=== PATIENT | male | born 1940 | race Caucasian/White ===

== ENCOUNTER → 2017-03-30 | Outpatient (CLI) | payer OTHER ==
[2017-03-30 09:32] LABS: BLOOD UREA NITROGEN 17 mg/dl (7-18); BUN/CREATININE RATIO 14.1 (10-20); CALCIUM 9.6 mg/dl (8.5-10.1); CARBON DIOXIDE 30 mmol/L (21-32); CHLORIDE 97 mmol/L (98-107); GLUCOSE 157 mg/dl (70-99); POTASSIUM 4.5 mmol/L (3.5-5.1); SODIUM 131 mmol/L (136-145)
[2017-03-30 10:20] LABS: ESTIMATED AVERAGE GLUCOSE 169 mg/dl; HA1C FLAG Normal (Normal)
== END | disposition home or self-care (01) ==
LOC: C.LABFOXMH 08:51
PROVIDERS: ATTEND Internal Medicine
DX: E10.9 Type 1 diabetes mellitus without complications (principal)

== ENCOUNTER → 2017-06-01 | Outpatient (CLI) | payer OTHER ==
[2017-06-01 10:22] LABS: BLOOD UREA NITROGEN 19 mg/dl (7-18); CALCIUM 9.4 mg/dl (8.5-10.1); CARBON DIOXIDE 30 mmol/L (21-32); CHLORIDE 96 mmol/L (98-107); GLUCOSE 168 mg/dl (70-99); POTASSIUM 4.3 mmol/L (3.5-5.1); SODIUM 131 mmol/L (136-145)
== END | disposition home or self-care (01) ==
LOC: C.LABFOXMH 09:43
PROVIDERS: ATTEND Internal Medicine
DX: I10 Essential (primary) hypertension (principal)

== ENCOUNTER → 2017-06-09 | Outpatient (CLI) | payer OTHER, BC ==
--- NOTE | 2017-06-09 11:25 | DIAGNOSTIC IMAGING REPORT ---
CAROTID DOPPLER NECK ART HISTORY: Carotid bruit. Mental status change. BRUIT COMPARISON: None. TECHNIQUE: Real-time, grayscale, and color Doppler sonography of the carotid arteries was performed. Imaging reviewed in the transverse and longitudinal planes. All measurements were calculated based on NASCET criteria. FINDINGS: Antegrade flow is seen in the bilateral vertebral arteries. The brachial pressures are hemodynamically similar. Mild plaque formation bilaterally The peak systolic velocity within the right ICA is 74. The right systolic ratio is 1.0. The peak systolic velocity within the left ICA is 69. The left systolic ratio is 0.9. IMPRESSION: No hemodynamically significant stenosis seen within the carotid arteries. Mild plaque formation bilaterally The above report was generated using voice recognition software. It may contain grammatical, syntax or spelling errors. Electronically signed by: Greg Ramírez M.D. 06/09/2017 11:24 AM Dictated Date/Time: 06/09/2017 11:23 AM
== END | disposition home or self-care (01) ==
LOC: C.ULTR 10:27
PROVIDERS: ATTEND Internal Medicine
DX: R09.89 Other specified symptoms and signs involving the circulatory and respiratory systems (principal)

== ENCOUNTER → 2017-08-30 | Outpatient (CLI) | payer OTHER, BC ==
[2017-08-30 10:12] LABS: BLOOD UREA NITROGEN 13 mg/dl (7-18); BUN/CREATININE RATIO 11.9 (10-20); CALCIUM 9.5 mg/dl (8.5-10.1); CARBON DIOXIDE 30 mmol/L (21-32); CHLORIDE 99 mmol/L (98-107); CHOLESTEROL 119 mg/dl (0-200); CREATININE 1.05 mg/dl (0.60-1.40); GLUCOSE 140 mg/dl (70-99); POTASSIUM 4.1 mmol/L (3.5-5.1); SODIUM 134 mmol/L (136-145); TRIGLYCERIDES 73 mg/dl (0-150); VERY LOW DENSITY LIPOPROT CALC 15 mg/dl
[2017-08-30 10:16] LABS: CHOLESTEROL/HDL RATIO 2.5; HDL CHOLESTEROL 47 mg/dl; LDL CHOLESTEROL CALCULATED 57 mg/dl
== END ==
LOC: C.LAB 08:48
PROVIDERS: ATTEND Internal Medicine
DX: E78.00 Pure hypercholesterolemia, unspecified (principal)

== ENCOUNTER → 2017-09-29 | Outpatient (CLI) | payer OTHER, BC ==
[~2017-09-29] MED LIST: ASPI81TA28 PO; CALC-51 PO; COQ10 PO; CYCL0.052 OP; FELO10TA2 PO; FINA5TAB PO; GLUCTAB7 PO; INSPMPNVLG; LEVO75TA5 PO; LOSA1TAB38 PO; MISCCAP80 PO; MULT-506 PO; OMEG12006 PO; SIMV10TA2 PO; SUPER BEET PO; [UNRECOGNIZED DRUG - CODE] PO
[2017-09-29 08:55] LABS: HEMOGLOBIN A1C 7.8 % (4.5-5.6)
== END | disposition home or self-care (01) ==
LOC: C.LABFOXMH 07:57
PROVIDERS: ATTEND Internal Medicine Hospice and Palliative Medicine
DX: E10.9 Type 1 diabetes mellitus without complications (principal)

== ENCOUNTER → 2017-10-19 | Outpatient (CLI) | payer OTHER, BC ==
[2017-10-19 08:28] LABS: BLOOD UREA NITROGEN 20 mg/dl (7-18); CALCIUM 9.6 mg/dl (8.5-10.1); CARBON DIOXIDE 29 mmol/L (21-32); CREATININE 1.14 mg/dl (0.60-1.40); GLUCOSE 182 mg/dl (70-99); POTASSIUM 4.1 mmol/L (3.5-5.1); SODIUM 130 mmol/L (136-145)
== END ==
LOC: C.LABFOXMH 07:42
PROVIDERS: ATTEND Internal Medicine
DX: I10 Essential (primary) hypertension (principal)

== ENCOUNTER → 2017-11-09 | Outpatient (CLI) | payer OTHER, BC ==
[2017-11-09 09:38] LABS: BLOOD UREA NITROGEN 14 mg/dl (7-18); CALCIUM 9.8 mg/dl (8.5-10.1); CARBON DIOXIDE 28 mmol/L (21-32); CREATININE 1.12 mg/dl (0.60-1.40); GLUCOSE 145 mg/dl (70-99); POTASSIUM 4.1 mmol/L (3.5-5.1); SODIUM 132 mmol/L (136-145)
== END | disposition home or self-care (01) ==
LOC: C.LABFOXMH 08:55
PROVIDERS: ATTEND Internal Medicine
DX: I10 Essential (primary) hypertension (principal)

== ENCOUNTER → 2017-11-27 | Outpatient (CLI) | payer OTHER, BC | END | disposition home or self-care (01) | LOC: C.LABFOXMH 08:57 | PROVIDERS: ATTEND Nurse Practitioner Family | DX: E03.9 Hypothyroidism, unspecified (principal) ==

== ENCOUNTER → 2017-12-28 | Outpatient (CLI) | payer OTHER, BC | END | disposition home or self-care (01) | LOC: C.LABFOXMH 08:09 | PROVIDERS: ATTEND Internal Medicine | DX: E10.649 Type 1 diabetes mellitus with hypoglycemia without coma (principal) ==

== ENCOUNTER → 2018-01-23 | Outpatient (CLI) | payer OTHER, BC ==
[2018-01-23 09:33] LABS: BLOOD UREA NITROGEN 16 mg/dl (7-18); CALCIUM 9.1 mg/dl (8.5-10.1); CARBON DIOXIDE 29 mmol/L (21-32); CREATININE 1.09 mg/dl (0.60-1.40); GLUCOSE 80 mg/dl (70-99); POTASSIUM 3.7 mmol/L (3.5-5.1); SODIUM 134 mmol/L (136-145)
== END | disposition home or self-care (01) ==
LOC: C.LABFOXMH 09:05
PROVIDERS: ATTEND Internal Medicine
DX: I10 Essential (primary) hypertension (principal)

== ENCOUNTER → 2018-05-09 | Day surgery (SDC) | payer OTHER, BC ==
[2018-04-30 13:25] VITALS: Ht 166.4 cm; Wt 69.5 kg
[~2018-05-09] VITALS: Ht 166.4 cm; Wt 69.5 kg
[~2018-05-09] MED LIST changes: +LIDOCAINE HCL 2% 2 ML VIAL (20MG/ML) ONE; +MIDAZOLAM HCL 1 MG/ML 2ML VIAL ONE; +ONDANSETRON INJ 2 MG/ML 2 ML VIAL ONE; +PROPOFOL IV EMULSION 10 MG/ML 20 ML VIAL ONE
--- NOTE | 2018-05-09 08:51 | Endo History and Physical ---
History & Physical Date of Service: May 09, 2018. Chief Complaint: Family history of colon cancer (mother and father) Referring Physician: Dr. Babin History of Present Illness 78 yo CM who presents for colonoscopy secondary to family history of colon cancer (mother and father). 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) Allergies Coded Allergies: No Known Allergies (Verified , 05/09/18) Current Medications Reported Home Medications Medications Dose Route/Sig Max Daily Dose Days Date Category Dose Instructions [Super Beet] 1 Dose PO 3XWEEK 04/30/18 Reported Zocor (Simvastatin) 10 Mg Tab 10 Mg PO QPM 04/30/18 Reported Restasis (Cyclosporine (Ophth)) 0.05 % Emu 1 Drop OP BID 04/30/18 Reported Probiotic (Probiotic Product) 1 Cap Cap 1 Tab PO NOON 04/30/18 Reported novoLOG INSULIN PUMP (Insulin Aspart) 1 Ea Inj 1 Ea N/A UD 04/30/18 Reported Multivitamin (Multivitamins) Tab 1 Tab PO NOON 04/30/18 Reported Cozaar (Losartan Potassium) 100 Mg Tab 100 Mg PO QAM 04/30/18 Reported Levothyroxine Sodium 75 Mcg Tab 1 Tab PO QAM 90 04/30/18 Reported [Spironlactone/Hctz] 0.5 Tab PO QAM 04/30/18 Reported 25/25/MG Glucosamine Chondroitin (Ubhmvepzrgo-Peodrhsqwvg-Yom C-) 1 Tab Tab 2 Tab PO NOON 04/30/18 Reported [place] 3 ([place]fe-3 Fatty Acids) 1 Cap Cap 2 Tab PO NOON 04/30/18 Reported Proscar (Finasteride) 5 Mg Tab 5 Mg PO NOON 04/30/18 Reported Plendil (Felodipine) 10 Mg Tabcr 10 Mg PO QAM 04/30/18 Reported [Calcium] 1 Tab PO NOON 04/30/18 Reported [Coq10] 1 Tab PO NOON 04/30/18 Reported Aspirin Ec (Aspirin) 81 Mg Tab 81 Mg PO HS 04/30/18 Reported Vital Signs Weight (Kilograms): 69.55 Height (Feet): 5 Height (Inches): 5.5 Physical Exam General Appearance: WD/WN, no apparent distress Respiratory/Chest: Auscultation: breath sounds normal Cardiovascular: Heart Auscultation: RRR Abdomen: Bowel Sounds: normal Inspection & Palpation: soft, non-distended, no tenderness, guarding & rebound Assessment and Plan Assessment: 78 yo CM who presents for colonoscopy secondary to family history of colon cancer (mother and father). Plan: Proceed with colonoscopy.
--- NOTE | 2018-05-09 10:12 | GI REPORT ---
Patient Name: Calin Agarwal Procedure Date: 05/09/2018 9:25 AM Date of : 1940 Admit Type: Outpatient Age: 78 Gender: Male Attending MD: Ryder Joshi DO Procedure: Colonoscopy Providers: Ryder Joshi DO Referring MD: Rigoberto Babin Indications: Family history of colon cancer in multiple first-degree relatives Medicines: Monitored Anesthesia Care Complications: No immediate complications. Estimated Blood Loss: Estimated blood loss: none. Procedure: Pre-Anesthesia Assessment: - Prior to the procedure, a History and Physical was performed, and patient medications and allergies were reviewed. The patient's tolerance of previous anesthesia was also reviewed. The risks and benefits of the procedure and the sedation options and risks were discussed with the patient. All questions were answered, and informed consent was obtained. Prior Anticoagulants: The patient has taken aspirin, last dose was 2 days prior to procedure. ASA Grade Assessment: III - A patient with severe systemic disease. After reviewing the risks and benefits, the patient was deemed in satisfactory condition to undergo the procedure. After I obtained informed consent, the scope was passed under direct vision. Throughout the procedure, the patient's blood pressure, pulse, and oxygen saturations were monitored continuously. The scope was introduced through the anus and advanced to the terminal ileum. The colonoscopy was performed without difficulty. The patient tolerated the procedure well. The quality of the bowel preparation was good. The terminal ileum, ileocecal valve, appendiceal orifice, and rectum were photographed. Findings: The perianal and digital rectal examinations were normal. Non-bleeding internal hemorrhoids were found during retroflexion. The hemorrhoids were small. Impression: - Non-bleeding internal hemorrhoids. - No specimens collected. Recommendation: - Resume previous diet. - Continue present medications. - Repeat colonoscopy in 5 years for surveillance. - Return to primary care physician as previously scheduled. Ryder Joshi DO 05/09/2018 10:11:59 AM This report has been signed electronically. Note Initiated On: 05/09/2018 9:25 AM Number of Addenda: 0 I attest to the content of the Intraoperative Record and orders documented therein, exceptions below {[id number]}
--- NOTE | 2018-05-09 10:13 | Discharge Instructions ---
Endoscopy Patient Instructions Date / Procedure(s) Performed May 09, 2018. Colonoscopy Allergy Information Coded Allergies: No Known Allergies (Verified , 05/09/18) Discharge Date / Findings May 09, 2018. Internal hemorrhoids Medication Instructions Stopped Medication(s): Patient held all supplements and only took his restasis and bp pills this am. OK to resume all medications today as prescribed Reported Home Medications Medications Dose Route/Sig Max Daily Dose Days Date Category Dose Instructions [Super Beet] 1 Dose PO 3XWEEK 04/30/18 Reported Zocor (Simvastatin) 10 Mg Tab 10 Mg PO QPM 04/30/18 Reported Restasis (Cyclosporine (Ophth)) 0.05 % Emu 1 Drop OP BID 04/30/18 Reported Probiotic (Probiotic Product) 1 Cap Cap 1 Tab PO NOON 04/30/18 Reported novoLOG INSULIN PUMP (Insulin Aspart) 1 Ea Inj 1 Ea N/A UD 04/30/18 Reported Multivitamin (Multivitamins) Tab 1 Tab PO NOON 04/30/18 Reported Cozaar (Losartan Potassium) 100 Mg Tab 100 Mg PO QAM 04/30/18 Reported Levothyroxine Sodium 75 Mcg Tab 1 Tab PO QAM 90 04/30/18 Reported [Spironlactone/Hctz] 0.5 Tab PO QAM 04/30/18 Reported 25/25/MG Glucosamine Chondroitin (Jgugasceubt-Ovmdmnxiung-Sdn C-) 1 Tab Tab 2 Tab PO NOON 04/30/18 Reported Knott 3 (Knott-3 Fatty Acids) 1 Cap Cap 2 Tab PO NOON 04/30/18 Reported Proscar (Finasteride) 5 Mg Tab 5 Mg PO NOON 04/30/18 Reported Plendil (Felodipine) 10 Mg Tabcr 10 Mg PO QAM 04/30/18 Reported [Calcium] 1 Tab PO NOON 04/30/18 Reported [Coq10] 1 Tab PO NOON 04/30/18 Reported Aspirin Ec (Aspirin) 81 Mg Tab 81 Mg PO HS 04/30/18 Reported Provider Instructions Activity Restrictions - No exercising or heavy lifting for 24 hours. - Do not drink alcohol the day of the procedure. - Do not drive a car or operate machinery until the day after the procedure. - Do not make any important decisions or sign important papers in 24 hours after the procedure. Following Day: - Return to full activity which may include returning to work/school. Diet Start your diet with liquids and light foods (jello, soup, juice, toast). Then eat your usual diet if not nauseated. Treatment For Common After Affects For mild abdominal pain, bloating, or excessive gas: - Rest - Eat lightly - Lie on right side Follow-Up Information Follow-up with Dr. Rigoberto Babin as scheduled Anesthesia Information What You Should Know You have had a procedure that required some medicine to reduce anxiety and discomfort. This treatment is called moderate sedation. After receiving the treatment, you may be sleepy, but you will be able to breathe on your own. The effects of the treatment may last for several hours. Follow these instructions along with Activity/Diet recommendations noted above: * Do NOT do anything where dizziness or clumsiness would be dangerous. * Rest quietly at home today, then you can be up and about tomorrow. * Have a responsible person stay with you the rest of today. * You may have had an I.V. today. If so, you may take the dressing off later today. Recommendations Call your doctor if: * Trouble breathing * Continuous vomiting for more than 24 hours * Temperature above 101 degrees * Severe abdominal pain or bloating * Pain not relieved by pain medicine ordered * There is increased drainage or redness from any incision * A large amount of rectal bleeding greater than 2-3 tablespoons. (If you had a polyp/s removed or have hemorrhoids, a small amount of blood - from the rectum is to be expected.) * You have any unanswered questions or concerns. IN THE EVENT OF A SERIOUS EMERGENCY, GO TO THE NEAREST EMERGENCY ROOM Your discharge instructions were prepared by provider Ryder Joshi. Patient Instructions Signature Page Calin Agarwal Patient (or Guardian) Signature/Date: I have read and understand the instructions given to me by my caregivers. Caregiver/RN/Doctor Signature/Date: The above-named patient and/or guardian has received patient instructions on this date. + Original Patient Signature Page (only) stays with chart. Please make copy for patient.
--- NOTE | 2018-05-09 10:18 | Anesthesiology Progress Note ---
Anesthesia Post Op Note Date & Time May 09, 2018 at 10:17 Vital Signs Pain Intensity: 0 Vital Signs Past 12 Hours Date Time Temp Pulse Resp B/P (MAP) Pulse Ox O2 Delivery O2 Flow Rate FiO2 05/09/18 08:56 36.1 87 20 137/63 (87) 100 Room Air Notes Mental Status: alert / awake / arousable, participated in evaluation Pt Amnestic to Procedure: Yes Nausea / Vomiting: adequately controlled Pain: adequately controlled Airway Patency, RR, SpO2: stable & adequate BP & HR: stable & adequate Hydration State: stable & adequate Anesthetic Complications: no major complications apparent
[2018-05-09 10:42] VITALS: BP 125/62; PULSE 56; O2SAT 97
== END | disposition home or self-care (01) ==
LOC: C.GI 08:24
PROVIDERS: ATTEND Internal Medicine
DX: Z12.11 Encounter for screening for malignant neoplasm of colon (principal); I10 Essential (primary) hypertension; K64.8 Other hemorrhoids; Z79.82 Long term (current) use of aspirin; Z80.0 Family history of malignant neoplasm of digestive organs

== ENCOUNTER 2020-10-26 12:11 | Observation (INO) ==
--- NOTE | 2020-10-26 12:56 | Emergency Department Note ---
History of Present Illness General Chief complaint: Shortness of Breath/Dyspnea Stated complaint: shortness of breath Time Seen by Provider: 10/26/20 12:25 Source: patient Mode of arrival: EMS Limitations: no limitations History of Present Illness Provider complaint: Shortness of breath, weakness Onset (ago): day(s) 3 Associated symptoms: + cough, + loss of appetite, + malaise, + shortness of breath and + weakness; no chest pain, no fever/chills and no nausea/vomiting Treatments prior to arrival: none This is an 80-year-old male who presents due to concern for increased shortness of breath and increasing weakness. Patient states symptoms began over the weekend. Patient does have a complicated past medical history. Patient states he has gotten the first of his 2 coronavirus vaccinations, but felt well after those. Patient has a history of recent aortic valve replacement in August as well as a history of hemolytic anemia. Patient states he take a baby aspirin daily however no other anticoagulation. Patient states he has been having nosebleeds recently which caused him to cough when he first wakes up however his cough does not persist throughout the day. Patient denies any other bruising or bleeding from any other source. Patient denies any history of asthma or COPD. Patient states he did smoke in his youth however quit in 1966. Patient does not typically wear home oxygen. On arrival nursing staff noted that he was markedly tachypneic despite still having room air saturations in the low 90s, patient reports now feeling improved with 2 L per nasal cannula. Patient denies any accompanying chest pain. Patient states he was found to have lymphadenopathy recently in his chest and is scheduled to have a biopsy in 2 days. Patient states he has had a poor appetite recently and is also noticed low blood sugar readings. Patient states he has been turning down his basal rate to try to manage this himself. Patient denies any recent change in bowel or bladder function, no lower extremity edema, no new rash or sores. Pt seen during a time of high acuity and national emergency pandemic while wearing PPE. Home Medications Medication Instructions Recorded Confirmed Type losartan 100 mg tablet 100 mg PO DAILY #90 tab 07/10/19 10/26/20 History aspirin 81 mg tablet,delayed 81 mg PO DAILY 08/13/19 10/26/20 History release levothyroxine 50 mcg capsule 50 mcg PO .COMPLEX 90 Days #45 cap 10/24/19 10/26/20 Rx levothyroxine 75 mcg tablet 75 mcg PO .COMPLEX 90 Days #45 tab 10/24/19 10/26/20 Rx Glucagon Emergency Kit (human) 1 1 mg IM .COMPLEX PRN #1 ea NS 02/27/20 10/26/20 Rx mg solution for injection rosuvastatin 10 mg tablet 10 mg PO .COMPLEX tab 02/27/20 10/26/20 History spironolactone 25 1 tab PO DAILY #90 tab 04/10/20 10/26/20 Rx mg-hydrochlorothiazide 25 mg tablet Novolog U-100 Insulin aspart 100 See Rx Instructions SQ DAILY #6 06/12/20 10/26/20 Rx unit/mL subcutaneous solution vial NS famotidine 20 mg tablet 20 mg PO BID 08/13/20 10/26/20 History tamsulosin 0.4 mg capsule 0.4 mg PO HS #90 cap 09/30/20 10/26/20 Rx cyclosporine 0.05 % eye drops 1 drp OPHTHALMIC (EYE) Q12H 10/21/20 10/26/20 History folic acid 1 mg tablet 1 mg PO DAILY 10/21/20 10/26/20 History prednisone 10 mg tablet 10 mg PO DAILY 10/21/20 10/26/20 History felodipine 10 mg tablet,extended 10 mg PO DAILY tab 10/23/20 10/26/20 History release 24 hr Allergies Allergy/AdvReac Type Severity Reaction Status Date / Time lisinopril [From Prinivil] Allergy Angioedema Verified 10/26/20 14:40 caffeine AdvReac Mild jitters Verified 10/26/20 14:40 Past Med/Surg History Medical History Cataract Diabetes type 1, controlled Hypoglycemia Malignant neoplasm Skin cancer, basal cell Surgical History History of eye surgery 1994 Excision growth on eye History of surgery Valve replaced 12-3-20 Hx of cataract surgery Family History Father Colorectal cancer Hypertension Mother Colorectal cancer Uncle Cardiac disorder Diabetes Sister Diabetes Social History Second Hand Exposure: No; Do You Dip or Chew Tobacco: No; Tobacco Cessation Education Requested by Patient: No Hx Alcohol Use: Yes (occasional use) Hx Substance Use: No Preferred Language: Panamanian Communication Ability: Effective 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 and A total of 10 systems reviewed and were otherwise negative Physical Exam Vital Signs Vital Signs - 24 hr 10/26/20 12:20 10/26/20 12:27 10/26/20 12:30 Temperature Temperature Source Pulse Rate 86 88 88 Pulse Rate from SpO2 Sensor 85 88 88 Respiratory Rate 29 H 27 H 29 H Respiratory Effort / Characteristics Respiratory Depth Respiratory Pattern Blood Pressure 116/60 114/64 Blood Pressure Mean 78 80 Pulse Oximetry 99 98 99 Oxygen Delivery Method Oxygen Flow Rate Sepsis Recent Fever Within 48 Hours Sepsis New/Unexplained Change in Mental Status Sepsis Action Taken by Nursing 10/26/20 12:32 10/26/20 12:40 10/26/20 12:50 Temperature 36.5 C Temperature Source Oral Pulse Rate 89 88 90 Pulse Rate from SpO2 Sensor 89 90 Respiratory Rate 34 H 30 H 24 Respiratory Effort / Characteristics Short of Breath Respiratory Depth Shallow Respiratory Pattern Tachypnea Blood Pressure 114/64 Blood Pressure Mean 80 Pulse Oximetry 92 98 98 Oxygen Delivery Method Room Air Oxygen Flow Rate Sepsis Recent Fever Within 48 Hours No Sepsis New/Unexplained Change in Mental Status No Sepsis Action Taken by Nursing No Action Required 10/26/20 13:00 10/26/20 13:10 10/26/20 13:20 Temperature Temperature Source Pulse Rate 89 90 91 H Pulse Rate from SpO2 Sensor 90 91 H Respiratory Rate 28 H 28 H 27 H Respiratory Effort / Characteristics Respiratory Depth Respiratory Pattern Blood Pressure 125/64 Blood Pressure Mean 84 Pulse Oximetry 97 97 Oxygen Delivery Method Oxygen Flow Rate Sepsis Recent Fever Within 48 Hours Sepsis New/Unexplained Change in Mental Status Sepsis Action Taken by Nursing 10/26/20 13:30 10/26/20 13:40 10/26/20 13:50 Temperature Temperature Source Pulse Rate 91 H 91 H 89 Pulse Rate from SpO2 Sensor Respiratory Rate 26 H 28 H 33 H Respiratory Effort / Characteristics Respiratory Depth Respiratory Pattern Blood Pressure Blood Pressure Mean Pulse Oximetry Oxygen Delivery Method Oxygen Flow Rate Sepsis Recent Fever Within 48 Hours Sepsis New/Unexplained Change in Mental Status Sepsis Action Taken by Nursing 10/26/20 14:00 10/26/20 14:01 10/26/20 14:59 Temperature Temperature Source Pulse Rate 87 92 H 90 Pulse Rate from SpO2 Sensor 90 Respiratory Rate 36 H 22 28 H Respiratory Effort / Characteristics Respiratory Depth Respiratory Pattern Blood Pressure 114/58 L Blood Pressure Mean 76 Pulse Oximetry 95 Oxygen Delivery Method Oxygen Flow Rate Sepsis Recent Fever Within 48 Hours Sepsis New/Unexplained Change in Mental Status Sepsis Action Taken by Nursing 10/26/20 15:00 10/26/20 15:10 10/26/20 15:20 Temperature Temperature Source Pulse Rate 90 91 H 92 H Pulse Rate from SpO2 Sensor 90 Respiratory Rate 34 H 35 H 36 H Respiratory Effort / Characteristics Respiratory Depth Respiratory Pattern Blood Pressure 117/60 Blood Pressure Mean 79 Pulse Oximetry 96 Oxygen Delivery Method Nasal Cannula Oxygen Flow Rate 2 Sepsis Recent Fever Within 48 Hours Sepsis New/Unexplained Change in Mental Status Sepsis Action Taken by Nursing 10/26/20 15:30 10/26/20 15:40 10/26/20 15:50 Temperature Temperature Source Pulse Rate 90 90 90 Pulse Rate from SpO2 Sensor 91 H 90 91 H Respiratory Rate 29 H 30 H 29 H Respiratory Effort / Characteristics Respiratory Depth Respiratory Pattern Blood Pressure Blood Pressure Mean Pulse Oximetry 96 96 97 Oxygen Delivery Method Oxygen Flow Rate Sepsis Recent Fever Within 48 Hours Sepsis New/Unexplained Change in Mental Status Sepsis Action Taken by Nursing 10/26/20 16:02 10/26/20 16:10 10/26/20 16:20 Temperature Temperature Source Pulse Rate 94 H 90 91 H Pulse Rate from SpO2 Sensor 91 H 91 H Respiratory Rate 28 H 34 H 29 H Respiratory Effort / Characteristics Respiratory Depth Respiratory Pattern Blood Pressure Blood Pressure Mean Pulse Oximetry 96 96 Oxygen Delivery Method Oxygen Flow Rate Sepsis Recent Fever Within 48 Hours Sepsis New/Unexplained Change in Mental Status Sepsis Action Taken by Nursing 10/26/20 16:30 10/26/20 16:40 10/26/20 16:50 Temperature Temperature Source Pulse Rate 89 90 89 Pulse Rate from SpO2 Sensor 90 91 H 89 Respiratory Rate 31 H 29 H 29 H Respiratory Effort / Characteristics Respiratory Depth Respiratory Pattern Blood Pressure Blood Pressure Mean Pulse Oximetry 96 96 95 Oxygen Delivery Method Oxygen Flow Rate Sepsis Recent Fever Within 48 Hours Sepsis New/Unexplained Change in Mental Status Sepsis Action Taken by Nursing GENERAL: alert, well appearing, well nourished, no distress, non-toxic, nasal cannula in place EYE EXAM: normal conjunctiva, PERRL and EOM's grossly intact OROPHARYNX: no exudate, no erythema, lips, buccal mucosa, and tongue normal and mucous membranes are moist NECK: supple, no nuchal rigidity, no adenopathy, non-tender LUNGS: Clear to auscultation. Normal chest wall mechanics, no w/r/r HEART: no murmurs, S1 normal and S2 normal ABDOMEN: abdomen soft, non-tender, normo-active bowel sounds, no masses, no rebound or guarding. BACK: Back is symmetrical on inspection and there is no deformity, no midline tenderness, no CVA tenderness. SKIN: no rashes and no bruising UPPER EXTREMITIES: upper extremities are grossly normal. FROM, nml pulses b/l. LOWER EXTREMITIES: No pitting edema. FROM, nml pulses b/l. NEURO EXAM: Normal sensorium, cranial nerves II-XII grossly intact, normal speech, no gross weakness of arms, no gross weakness of legs. Gross sensation intact. Course Course 1432: Updated patient and at bedside. 1440: Discussed with Dr. Strange, he would like the case discussed with Dr. Smith prior to admitting him. 1447: Dr. Smith suggests pt should be transferred. 1450: Pt updated on discussions. Would prefer transfer back to [facility]. 1615: Discussed with [facility] Dr. Arias hospitalist and Dr. Whitaker, heme/onc. 1640: DIscussed again with Dr. Strange. Administered Medications Dextrose (Dextrose 50% 50 Ml Syringe) 25 - 50 ml IV UD PRN; Protocol PRN Reason: Hypoglycemia Protocol Stop: 11/25/20 18:18 Last Admin: 10/26/20 19:37 Dose: 50 ml Documented by: [id number] Sodium Chloride (Nss 1000ml) 1,000 mls @ 125 mls/hr IV .Q8H [facility] Stop: 11/25/20 18:59 Last Admin: 10/26/20 19:13 Dose: 125 mls/hr Documented by: [id number] Discontinued Medications Sodium Chloride (Nss 1000ml) 1,000 mls @ 125 mls/hr IV .Q8H [facility] Stop: 11/25/20 12:59 Last Infusion: 10/26/20 19:13 Dose: 0 mls/hr Documented by: [id number] Admin: 10/26/20 13:44 Dose: 125 mls/hr Documented by: [id number] Cefepime HCl (Maxipime) 2,000 mg in 20 mls @ 5 mls/min IV NOW STA; Protocol Stop: 10/26/20 16:42 Last Admin: 10/26/20 16:52 Dose: 5 mls/min Documented by: [id number] Critical Care Time Critical Care Time: Yes Total Critical Care Time: 52 Critical care of 52 min performed to assess and manage high likelihood of life- threatening arf and possible new leukemia, involving labs and imaging performed with assessment to evaluate arf and possible new leukemia diagnosis with freq uent reassessment. This time includes bedside time, treatment discussions with patient/family/consultants, documentation time and excludes procedure time. Medical Decision Making Differential Diagnosis Differential diagnoses includes but is not limited to pneumonia, bronchitis, COPD/Asthma exacerbation, pneumothorax, pulmonary embolism, congestive heart failure, acute coronary syndrome Medical Records Attestation: I reviewed the patient's medical records. Home Medications Current Medication List: was personally reviewed by me Laboratory Data Attestation: I reviewed the patient's lab results. Result diagrams: 10/26/20 12:30 10/26/20 12:30 Lab Results 10/26/20 10/26/20 10/26/20 Range/Units 12:30 12:30 12:30 WBC 41.85 H* (4.8-10.8) K/uL RBC 3.40 L (4.7-6.1) M/uL Hgb 10.7 L (14.0-18.0) g/dL Hct 30.9 L (42-52) % MCV 90.9 (80-100) fL MCH 31.5 (25-34) pg MCHC 34.6 (32-36) g/dL RDW Std Deviation 49.0 H (36.4-46.3) fL RDW Coeff of Elvia 14.9 H (11.5-14.5) % Plt Count 89 L (130-400) K/uL MPV 10.8 H (7.4-10.4) fL Absolute Nucleated RBC 0.35 H (0-0) K/uL Nucleated RBC % (auto) 0.8 % Neutrophils % (Manual) 51.0 % Lymphocytes % (Manual) 18.0 % Monocytes % (Manual) 10.0 % Metamyelocytes % (Man) 10.0 % Myelocytes % (Man) 11.0 % Neutrophils # (Manual) 21.34 H (1.4-6.5) K/uL Total Absolute Neuts 21.34 H (1.4-6.5) K/uL Lymphocytes # (Manual) 7.53 H (1.2-3.4) K/uL Total Abs Lymphocytes 7.53 H (1.2-3.4) K/uL Monocytes # (Manual) 4.19 H (0.11-0.59) K/uL Metamyelocytes # (Man) 4.19 H (0-0) K/uL Myelocytes # (Manual) 4.60 H (0-0) K/uL Blood Smear Review PT 12.2 H (9.0-12.0) Seconds INR 1.2 H (0.9-1.1) ABG pH (7.35-7.45) ABG pCO2 (35-46) mmHg ABG pO2 (80-95) mmHg ABG HCO3 (19-24) mmol/L ABG O2 Saturation (90-95) % ABG Base Excess (-9-1.8) mEq/L Leonid Test (Pos) Barometric Pressure mm/Hg Oxygen Given Sodium 136 (136-145) mmol/L Potassium 5.1 (3.5-5.1) mmol/L Chloride 101 (98-107) mmol/L Carbon Dioxide 18 L (21-32) mmol/L Anion Gap 17.0 H (3-11) BUN 57 H (7-18) mg/dl Creatinine 2.70 H (0.6-1.4) mg/dl Est Cr Clr Drug Dosing 18.3 ml/min Est GFR ( Amer) 24.3 Est GFR (Non-Af Amer) 21.0 BUN/Creatinine Ratio 21.0 H (10-20) Glucose 64 L (70-99) mg/dl Lactate (0.4-2.0) mmol/L Uric Acid (2.6-7.2) mg/dl Calcium 10.1 (8.5-10.1) mg/dl Phosphorus (2.5-4.9) mg/dl Magnesium 2.1 (1.8-2.4) mg/dl Total Bilirubin 0.6 (0.2-1) mg/dl AST 228 H (15-37) U/L ALT 24 (12-78) U/L Alkaline Phosphatase 181 H (45-117) U/L Troponin I 0.138 H* (0-0.045) ng/ml NT-Pro-B Natriuret Pep 2515 H (0-1800) pg/ml Total Protein 6.8 (6.4-8.2) gm/dl Albumin 2.9 L (3.4-5.0) gm/dl Globulin 3.9 (2.5-4.0) gm/dl Albumin/Globulin Ratio 0.7 L (0.9-2) Lipase (73-393) U/L Procalcitonin (0-0.5) ng/ml TSH 2.450 (0.300-4.500) uIu/ml COVID-19 Eval Order SARS-CoV-2 (PCR) (Negative) Influenza Type A (PCR) (Neg) Influenza Type B (PCR) (Neg) RSV (RT-PCR) (Neg) 10/26/20 10/26/20 10/26/20 Range/Units 12:30 13:00 13:00 WBC (4.8-10.8) K/uL RBC (4.7-6.1) M/uL Hgb (14.0-18.0) g/dL Hct (42-52) % MCV (80-100) fL MCH (25-34) pg MCHC (32-36) g/dL RDW Std Deviation (36.4-46.3) fL RDW Coeff of Elvia (11.5-14.5) % Plt Count (130-400) K/uL MPV (7.4-10.4) fL Absolute Nucleated RBC (0-0) K/uL Nucleated RBC % (auto) % Neutrophils % (Manual) % Lymphocytes % (Manual) % Monocytes % (Manual) % Metamyelocytes % (Man) % Myelocytes % (Man) % Neutrophils # (Manual) (1.4-6.5) K/uL Total Absolute Neuts (1.4-6.5) K/uL Lymphocytes # (Manual) (1.2-3.4) K/uL Total Abs Lymphocytes (1.2-3.4) K/uL Monocytes # (Manual) (0.11-0.59) K/uL Metamyelocytes # (Man) (0-0) K/uL Myelocytes # (Manual) (0-0) K/uL Blood Smear Review PT (9.0-12.0) Seconds INR (0.9-1.1) ABG pH (7.35-7.45) ABG pCO2 (35-46) mmHg ABG pO2 (80-95) mmHg ABG HCO3 (19-24) mmol/L ABG O2 Saturation (90-95) % ABG Base Excess (-9-1.8) mEq/L Leonid Test (Pos) Barometric Pressure mm/Hg Oxygen Given Sodium (136-145) mmol/L Potassium (3.5-5.1) mmol/L Chloride (98-107) mmol/L Carbon Dioxide (21-32) mmol/L Anion Gap (3-11) BUN (7-18) mg/dl Creatinine (0.6-1.4) mg/dl Est Cr Clr Drug Dosing ml/min Est GFR ( Amer) Est GFR (Non-Af Amer) BUN/Creatinine Ratio (10-20) Glucose (70-99) mg/dl Lactate (0.4-2.0) mmol/L Uric Acid 18.2 H (2.6-7.2) mg/dl Calcium (8.5-10.1) mg/dl Phosphorus 3.5 (2.5-4.9) mg/dl Magnesium (1.8-2.4) mg/dl Total Bilirubin (0.2-1) mg/dl AST (15-37) U/L ALT (12-78) U/L Alkaline Phosphatase (45-117) U/L Troponin I (0-0.045) ng/ml NT-Pro-B Natriuret Pep (0-1800) pg/ml Total Protein (6.4-8.2) gm/dl Albumin (3.4-5.0) gm/dl Globulin (2.5-4.0) gm/dl Albumin/Globulin Ratio (0.9-2) Lipase 133 (73-393) U/L Procalcitonin (0-0.5) ng/ml TSH (0.300-4.500) uIu/ml COVID-19 Eval Order [facility]Rsv at [facility] SARS-CoV-2 (PCR) NEGATIVE (Negative) Influenza Type A (PCR) Negative (Neg) Influenza Type B (PCR) Negative (Neg) RSV (RT-PCR) Negative (Neg) 10/26/20 10/26/20 10/26/20 Range/Units 15:12 15:12 15:26 WBC (4.8-10.8) K/uL RBC (4.7-6.1) M/uL Hgb (14.0-18.0) g/dL Hct (42-52) % MCV (80-100) fL MCH (25-34) pg MCHC (32-36) g/dL RDW Std Deviation (36.4-46.3) fL RDW Coeff of Elvia (11.5-14.5) % Plt Count (130-400) K/uL MPV (7.4-10.4) fL Absolute Nucleated RBC (0-0) K/uL Nucleated RBC % (auto) % Neutrophils % (Manual) % Lymphocytes % (Manual) % Monocytes % (Manual) % Metamyelocytes % (Man) % Myelocytes % (Man) % Neutrophils # (Manual) (1.4-6.5) K/uL Total Absolute Neuts (1.4-6.5) K/uL Lymphocytes # (Manual) (1.2-3.4) K/uL Total Abs Lymphocytes (1.2-3.4) K/uL Monocytes # (Manual) (0.11-0.59) K/uL Metamyelocytes # (Man) (0-0) K/uL Myelocytes # (Manual) (0-0) K/uL Blood Smear Review PT (9.0-12.0) Seconds INR (0.9-1.1) ABG pH 7.44 (7.35-7.45) ABG pCO2 30 L (35-46) mmHg ABG pO2 102 H (80-95) mmHg ABG HCO3 20 (19-24) mmol/L ABG O2 Saturation 98.0 H (90-95) % ABG Base Excess -3.5 (-9-1.8) mEq/L Leonid Test Pos (Pos) Barometric Pressure 727.4 mm/Hg Oxygen Given O2 RATE 3 Sodium (136-145) mmol/L Potassium (3.5-5.1) mmol/L Chloride (98-107) mmol/L Carbon Dioxide (21-32) mmol/L Anion Gap (3-11) BUN (7-18) mg/dl Creatinine (0.6-1.4) mg/dl Est Cr Clr Drug Dosing ml/min Est GFR ( Amer) Est GFR (Non-Af Amer) BUN/Creatinine Ratio (10-20) Glucose (70-99) mg/dl Lactate 8.2 H* (0.4-2.0) mmol/L Uric Acid (2.6-7.2) mg/dl Calcium (8.5-10.1) mg/dl Phosphorus (2.5-4.9) mg/dl Magnesium (1.8-2.4) mg/dl Total Bilirubin (0.2-1) mg/dl AST (15-37) U/L ALT (12-78) U/L Alkaline Phosphatase (45-117) U/L Troponin I (0-0.045) ng/ml NT-Pro-B Natriuret Pep (0-1800) pg/ml Total Protein (6.4-8.2) gm/dl Albumin (3.4-5.0) gm/dl Globulin (2.5-4.0) gm/dl Albumin/Globulin Ratio (0.9-2) Lipase (73-393) U/L Procalcitonin 1.51 H (0-0.5) ng/ml TSH (0.300-4.500) uIu/ml COVID-19 Eval Order SARS-CoV-2 (PCR) (Negative) Influenza Type A (PCR) (Neg) Influenza Type B (PCR) (Neg) RSV (RT-PCR) (Neg) Imaging Data Radiologist's Impression: XR chest 1V portable HISTORY: 80 years-old Male sob, weak acute shortness of breath with weakness COMPARISON: Chest radiographs 04/30/2020 TECHNIQUE: Portable AP view of the chest FINDINGS: Cardiomediastinal and hilar silhouettes are unchanged. Aortic endograft. There is calcified plaque of the thoracic aorta. Linear subsegmental bibasilar densities are new from comparison. Bones appear grossly intact. IMPRESSION: Linear bibasilar opacities suggest atelectasis. Pneumonitis co nsidered less likely. ACT 112: Negative or not required by law. The above report was generated using voice recognition software. It may contain grammatical, syntax or spelling errors. Electronically signed by: Ed Kenney M.D. 10/26/2020 1:25 PM ECG Data Attestation: I personally reviewed and interpreted this ECG as follows: Indication: + SOB/dyspnea Rate (beats per minute): 88 Rhythm: + normal sinus ECG Intervals/blocks: + Normal QRS and + Normal QT ECG [place]: + Left axis deviation ECG ST segments: + Nonspecific ST abnormalities MDM Narrative This is an 80-year-old male presents the emergency department complaining of shortness of breath, weakness, loss of appetite. Given advanced age and sign ificant past medical history, labs are drawn and sent, IV fluids started and maintenance, and we initially discussed CT of the chest. Patient had mentioned he was recently found to have enlarged lymph nodes in the chest and was scheduled for biopsy this week. I felt CT more prudent to provide better imaging given the lymphadenopathy and also rule out PE. As patient's lab study result, it was called that he was on acute kidney injury with a creatinine of 2.7. At this point in time given CT angiography could not be performed, a stat chest x-ray was ordered to evaluate for consolidation, CHF, pleural effusions given his dyspnea. This was negative. A CT of the chest as well as lower extremity Dopplers were then ordered. Patient's Dopplers were negative. Additional labs resulted showing a markedly increased white blood cell count of 41 which was new for the patient. Patient's H&H were slightly low, however appeared stable compared to prior. Patient's blood sugar was 64 although selena fisher was noted to have an anion gap. In discussing the case with the hospitalist they asked that I discussed the case with on-call heme-onc. Dr. Brewster felt patient would be better served at a tertiary care facility. Unfortunately due to inclement weather, while her she was happy to accept the patient once they had available bed space, there was no available transportation at this time. Patient will remain here at least overnight until it is safe for transport to [facility] for additional evaluation and treatment. Per my discussion with the hospitalist and heme-onc doctors at [facility], additional labs were added. These were still pending at the time of my discussion with the hospitalist again. I felt patient's elevated leukocytosis likely secondary to malignancy and not to occult infection. Patient's lactic acid and pro calcitonin were still pending. Patient's ABG was reassuring patient not acidemic. After lactic acidosis resulted high, this likely explains the anion gap. There is no evidence of necrosis around the mass that was noted on CT. I feel the elevated troponin and BMP are likely secondary to the acute kidney injury. Patient did not examine like congestive heart failure or volume overload. Patient never hypoxic, was noted to be tachypneic and expressed difficulty breathing however felt markedly improved with 2 L via nasal cannula. Hospitalist did make me aware that after additional blood work resulted, antibiotics were ordered to cover for possible infection. Blood cultures had already initially been drawn and are pending at this time. We will plan on the patient staying here overnight until it is safe for transport and there is an available bed for the patient tomorrow morning. An order was placed for continuous cardiac monitoring. The monitor shows a rate of 90_ with _normal sinus_ rhythm. Impression & Plan Weakness, SHERON (acute kidney injury), Acute dyspnea, Leukocytosis, Anemia, Acute leukemia, Hypoglycemia Discharge Plan Visit Data Chief Complaint: Shortness of Breath/Dyspnea Stated Complaint: shortness of breath ED Provider: Judi Herrera Discharge Problem: Weakness, SHERON (acute kidney injury), Acute dyspnea, Leukocytosis, Anemia, Acute leukemia, Hypoglycemia Patient Disposition: Admitted As Inpatient Discharge Instructions Interventions: ED Discharge Assessment Last Done: 10/26/20 18:07 Discharge Problem: Leukocytosis Qualifiers: Leukocytosis type: unspecified Qualified Code(s): D72.829 - Elevated white blood cell count, unspecified Anemia Qualifiers: Anemia type: unspecified type Qualified Code(s): D64.9 - Anemia, unspecified Acute leukemia Qualifiers: Leukemia Active/Remission status: without remission Qualified Code(s): 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
[2020-10-26] MEDS ORDERED: SODIUM CHLORIDE 0.9% 1000ML 1,000 ML IV SCH ×2 (13:00→19:00)
[2020-10-26 13:04] LABS: Albumin Level 2.9 gm/dl (3.4-5.0); Calcium 10.1 mg/dl (8.5-10.1); Creatinine Clr Calc Pharmacy 18.3 ml/min; Est GFR (African American) 24.3; Magnesium 2.1 mg/dl (1.8-2.4); Potassium 5.1 mmol/L (3.5-5.1)
[2020-10-26 13:08] LABS: INR 1.2 (0.9-1.1); Prothrombin Time 12.2 Seconds (9.0-12.0)
[2020-10-26 13:09] LABS: Hematocrit (blood only) 30.9 % (42-52); Hemoglobin 10.7 g/dL (14.0-18.0); Mean Corpuscular Hemoglobin 31.5 pg (25-34); Mean Corpuscular Hgb Conc 34.6 g/dL (32-36); Mean Corpuscular Volume 90.9 fL (80-100); RDW Coefficient of Variation 14.9 % (11.5-14.5); White Blood Count 41.85 K/uL (4.8-10.8)
[2020-10-26 13:22] LABS: Albumin Globulin Ratio 0.7 (0.9-2); Bilirubin,Total 0.6 mg/dl (0.2-1); Globulin 3.9 gm/dl (2.5-4.0); Thyroid Stimulating Hormone 2.45 uIu/ml (0.300-4.500); Total Protein 6.8 gm/dl (6.4-8.2); Troponin I 0.138 ng/ml (0-0.045)
--- NOTE | 2020-10-26 13:26 | XRay Report ---
XR chest 1V portable HISTORY: 80 years-old Male sob, weak acute shortness of breath with weakness COMPARISON: Chest radiographs 04/30/2020 TECHNIQUE: Portable AP view of the chest FINDINGS: Cardiomediastinal and hilar silhouettes are unchanged. Aortic endograft. There is calcified plaque of the thoracic aorta. Linear subsegmental bibasilar densities are new from comparison. Bones appear gr ossly intact. IMPRESSION: Linear bibasilar opacities suggest atelectasis. Pneumonitis considered less likely. ACT 112: Negative or not required by law. The above report was generated using voice recognition software. It may contain grammatical, syntax o r spelling errors. Electronically signed by: Ed Kenney M.D. 10/26/2020 1:25 PM
--- NOTE | 2020-10-26 13:43 | Electrocardiogram Report ---
Test Reason : Blood Pressure : / mmHG Vent. Rate : 088 BPM Atrial Rate : 088 BPM P-R Int : 178 ms QRS Dur : 118 ms QT Int : 394 ms P-R-T Axes : 044 -61 031 degrees QTc Int : 476 ms Normal sinus rhythm Left anterior fascicular block Poor R wave progression, consider anterior ND vs. lead placement vs. LVH Abnormal ECG No previous ECGs available Confirmed by Joe Campbell ([id number]) on 10/26/2020 1:43:35 PM Referred By: Jas Marsh Confirmed By:Joe Campbell
[2020-10-26 13:52] LABS: Influenza A virus by PCR Negative (Neg); Influenza B virus by PCR Negative (Neg); RSV by PCR Negative (Neg); SARS CoV2 RNA(COVID-19) InHosp NEGATIVE (Negative)
[2020-10-26 14:00] LABS: Mean Platelet Volume 10.8 fL (7.4-10.4); Platelet Count 89 K/uL (130-400)
[2020-10-26 14:45] LABS: ALC (manual) 7.53 K/uL (1.2-3.4); ANC (manual) 21.34 K/uL (1.4-6.5); Lymphocytes # (manual) 7.53 K/uL (1.2-3.4); Metamyelocytes # (manual) 4.19 K/uL (0-0); Monocytes # (manual) 4.19 K/uL (0.11-0.59); Neutrophils # (manual) 21.34 K/uL (1.4-6.5); Nucleated RBC # (auto) 0.35 K/uL (0-0); Nucleated RBC % (auto) 0.8 %
--- NOTE | 2020-10-26 14:50 | Ultrasound Report ---
BILATERAL LOWER EXTREMITY VENOUS DOPPLER HISTORY: Acute pain and swelling of the lower legs r/o dvt, malignancy COMPARISON STUDY: None. FINDINGS: There is normal compressibility, flow, and augmentation within the bilateral lower extremit y deep venous systems. 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 IMPRESSION: No DVT within the right or left lower extremity. ACT 112: Negative or not required by law. Electronically signed by: Ed Kenney M.D. 10/26/2020 2:49 PM
--- NOTE | 2020-10-26 14:50 | CT Scan Report ---
CT SCAN OF THE CHEST WITHOUT IV CONTRAST CLINICAL HISTORY: Dyspnea. Reported history of lymphoma. COMPARISON STUDY: Chest x-ray dated 10/26/2020. TECHNIQUE: CT scan of the thorax was performed from the thoracic inlet to the upper abdomen. Images are reviewed in the axial, sagittal, and coronal planes. IV contrast was not administered for this ex amination as per the referring clinician. A dose lowering technique was utilized adhering to the marcela lino of REECE. CT DOSE: 228.41 mGy.cm FINDINGS: Thyroid: Imaged portions of the thyroid gland are normal in size and attenuation. Thoracic aorta: There is atherosclerotic calcification of the thoracic aorta, which is normal in federico keanu and demonstrates bovine variant arch anatomy. Heart: The heart is enlarged and without pericardial effusion. The coronary arteries are densely calc ified. There is evidence of previous aortic valve surgery. There is diminished attenuation of the car diac blood pool as compared to the myocardium suggesting anemia. Lungs and pleural spaces: Linear atelectasis/scarring is seen at both lung bases. No airspace consoli dation is identified typical for pneumonia. There is trace right pleural effusion. The trachea and ce ntral airways are clear. Mediastinum: A heterogeneous lymph node in the anterior mediastinum on image #93 measures 1.3 x 1.0 c m. No additional enlarged mediastinal nodes are identified. Parul: Not well assessed without IV contrast. Axillae: There is an approximately 6 x 4 cm heterogeneous mass with surrounding soft tissue infiltrat ion the left axilla. No right axillary adenopathy is identified. Upper abdomen: The spleen appears enlarged. Infiltration is identified around the pancreatic tail. Th ere is fullness of the upper pole collecting system of the right kidney. Infiltration is also identif ied in the right cardiophrenic region. Skeletal structures: The skeletal structures are osteopenic. Degenerative change and mild hyperkyphos is is noted in the thoracic spine. No lytic or blastic bony lesions are seen. IMPRESSION: 1. There is no airspace consolidation typical for pneumonia. 2. Cardiomegaly and trace right pleural effusion. 3. Significant scarring/atelectasis is present at both lung bases. 4. There is an approximately 6 x 4 cm heterogeneous left axillary mass with surrounding infiltration. Given the reported history of lymphoma this likely represents treated disease. Correlation with clin ical findings and any prior imaging studies will be required. 5. A small and similar appearing lymph node in the anterior mediastinum measures up to 1.3 cm. 6. There is infiltration in the upper abdomen around the distal pancreas and in the right cardiophren ic region. This may resent treated lymphoma. Correlation with clinical findings, any prior imaging st udies, and serum lipase levels is recommended. 7. Suspect fullness of the right upper pole renal collecting system. This is not well evaluated. If f urther assessment is desired a renal ultrasound could be considered. 8. Splenomegaly. 9. Additional findings as above. ACT 112: Negative or not required by law. Electronically signed by: Imtiaz Sunshine M.D. 10/26/2020 2:49 PM
[2020-10-26 15:36] LABS: Base Excess ABG -3.5 mEq/L (-9-1.8); HCO3 ABG 20 mmol/L (19-24); PCO2 ABG 30 mmHg (35-46); PO2 ABG 102 mmHg (80-95); pH ABG 7.44 (7.35-7.45)
[2020-10-26 15:42] LABS: Allen Test Pos (Pos)
[2020-10-26 16:34] LABS: Phosphorus 3.5 mg/dl (2.5-4.9); Uric Acid 18.2 mg/dl (2.6-7.2)
[2020-10-26] MEDS ORDERED: CEFEPIME 2,000 MG/20 ML VIAL IV STA (16:39)
--- NOTE | 2020-10-26 17:02 | History & Physical Report ---
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 Accepted for transfer to [facility] under Dr Whitaker but due to current weather conditions will admit overnight. (2) Lymphadenopathy: Plan for transfer to [facility] as above. (3) Acute kidney injury: UA pending. CT chest noted suspected fullness of right upper pole renal collecting system therefore get ultrasound abdomen to better assess this. Suspect significant degree of prerenal in addition to ibuprofen use. Continue IV fluids overnight with NSS 125 mL/h Hold spironolactone/hydrochlorothiazide and losartan. Repeat BMP in a.m. 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 daily (5) Hypothyroidism: TSH 2.45. Continue levothyroxine home dosing alternating doses every other day; 50/75 mcg p.o. every other day. (6) Diabetes type 1, controlled: Patient wishes to use his own insulin pump. Discussed current hypoglycemia and will have no basal dose between 10 PM and 2 AM with markedly reduced basal dose after this. HbA1c 5.1 in April. In case the patient stays we will repeat with a.m. labs. (7) Thrombocytopenia: Suspect secondary to AML above. (8) Elevated lactic acid level: Suspect elevated in the setting of diabetes and acute leukemia rather than sepsis. Significant anion gap however noted acidosis on ABG therefore well compensated. (9) Elevated troponin: Previous cardiac catheterization (June 2020) with moderate nonobstructive mid RCA stenosis (FFR 0.91). Suspect demand ischemia in the setting of AML. Low likelihood of acute coronary syndrome however will trend troponin overnight. (10) Aortic stenosis: S/p TAVR 08/2020 No sign of heart failure on exam or imaging. (11) HTN (hypertension): Hold losartan, hydrochlorothiazide, spironolactone as above. (12) Coronary artery disease: Continue aspirin 81 mg p.o. daily Continue rosuvastatin 10 mg p.o. MWF (13) DVT prophylaxis: Heparin 5000 units SQ twice daily (hold if platelets less than 50) Admission and Anticipated Discharge Date Admission Date: October 26, 2020 History of Present Illness Primary Care Provider: [facility] Calin Agarwal is an 80-year-old male who lives in independent living at [facility] with type 1 diabetes mellitus on insulin pump, warm hemolytic anemia, s/p TAVR August 2020 who presents to the ER with progressive shortness of breath on the advice of his physician. He reports longstanding shortness of breath for different reasons. He was recently diagnosed with hemolytic anemia requiring a long tapering dose of prednisone (currently taking 10 mg p.o. daily). with hemolytic. In addition he has been having shortness of breath related to his aortic stenosis and felt much improved s/p TAVR in early August 2020. However for the past 2 weeks he has had increasing shortness of breath especially over the last few days. He was seen by his outpatient physician Dr. Babin last week who noted left axillary and supraclavicular lymphadenopathy. The patient reports plan was to have a biopsy of this in 2 days. Today his outpatient physician felt possible hepatomegaly and given increasing shortness of breath recommended evaluation in the emergency room. In addition he has noted bilateral thigh pain for which he has been taking ibuprofen and acetaminophen every 6-8 hours. He is also noted his glucose levels running very low and needing to make multiple adjustments to his basal insulin to compensate for this. In the ER his case was discussed with myself and I recommended discussing with our oncologist Dr. Smith as likely this patient will need to be transferred. This was subsequently recommended and he is excepted for transfer to [facility] however given the current snowstorm and bed situation at [facility] requested admission here pending transfer to [facility]. Allergies Allergy/AdvReac Type Severity Reaction Status Date / Time lisinopril [From Prinivil] Allergy Angioedema Verified 10/26/20 14:40 caffeine AdvReac Mild jitters Verified 10/26/20 14:40 Home Medications Medication Instructions Recorded Confirmed Type losartan 100 mg tablet 100 mg PO DAILY #90 tab 07/10/19 10/26/20 History aspirin 81 mg tablet,delayed 81 mg PO DAILY 08/13/19 10/26/20 History release levothyroxine 50 mcg capsule 50 mcg PO .COMPLEX 90 Days #45 cap 10/24/19 10/26/20 Rx levothyroxine 75 mcg tablet 75 mcg PO .COMPLEX 90 Days #45 tab 10/24/19 10/26/20 Rx Glucagon Emergency Kit (human) 1 1 mg IM .COMPLEX PRN #1 ea NS 02/27/20 10/26/20 Rx mg solution for injection rosuvastatin 10 mg tablet 10 mg PO .COMPLEX tab 02/27/20 10/26/20 History spironolactone 25 1 tab PO DAILY #90 tab 04/10/20 10/26/20 Rx mg-hydrochlorothiazide 25 mg tablet Novolog U-100 Insulin aspart 100 See Rx Instructions SQ DAILY #6 06/12/20 10/26/20 Rx unit/mL subcutaneous solution vial NS famotidine 20 mg tablet 20 mg PO BID 08/13/20 10/26/20 History tamsulosin 0.4 mg capsule 0.4 mg PO HS #90 cap 09/30/20 10/26/20 Rx cyclosporine 0.05 % eye drops 1 drp OPHTHALMIC (EYE) Q12H 10/21/20 10/26/20 History folic acid 1 mg tablet 1 mg PO DAILY 10/21/20 10/26/20 History prednisone 10 mg tablet 10 mg PO DAILY 10/21/20 10/26/20 History felodipine 10 mg tablet,extended 10 mg PO DAILY tab 10/23/20 10/26/20 History release 24 hr Past Med/Surg History Medical History Cataract Diabetes type 1, controlled Hypoglycemia Malignant neoplasm Skin cancer, basal cell Surgical History History of eye surgery 1994 Excision growth on eye History of surgery Valve replaced 12-3-20 Hx of cataract surgery Family History Father Colorectal cancer Hypertension Mother Colorectal cancer Uncle Cardiac disorder Diabetes Sister Diabetes Social History Second Hand Exposure: No; Do You Dip or Chew Tobacco: No; Tobacco Cessation Education Requested by Patient: No Hx Alcohol Use: Yes (occasional use) Hx Substance Use: No Preferred Language: Kenyan Communication Ability: Effective Manager Payer Required: No Beliefs That Will Affect Care: None marital status: Current Living Situation: Spouse Current Living Situation Comment: Jas Marsh current occupational status: retired How many Children do You have: 4 Other Information That Helps Us Care for You: No Feels Safe at Home: Yes Safety Concerns: Feels Safe At This Time Assistive Devices: Denture - Upper and Glasses Review of Systems Review of Systems: All systems reviewed & are unremarkable except as noted in HPI & below Constitutional: + fatigue and + weight loss (Decreased appetite); no fever, no chills and no sweats Eyes: no problem reported Ear, Nose, Mouth, Throat: + epistaxis Respiratory: + cough (Occasional at night) and + dyspnea on exertion; no pain on inspiration Gastrointestinal: + early satiety; no abdominal pain, no nausea, no vomiting, no change in stools, no blood in stools and no melena Genitourinary: no problem reported Musculoskeletal: no radicular pain Physical Exam Constitutional: WD/WN, vitals as above no acute distress Eyes: PERRL, conjunctivae normal, anicteric sclerae ENMT: Ears: no external ear abnormality Nose: no external nose abnormality Mouth: + dry oral mucous membranes Neck: trachea midline, no thyromegaly Respiratory: normal respiratory effort, lungs clear to auscultation Cardiovascular: Rate/Rhythm: regular rate and regular rhythm Heart Sounds: + murmur (2/6 systolic RUSB) Extremities: normal capillary refill and + pedal edema (Trace equal bilaterally); no calf tenderness Gastrointestinal (Abdomen): Inspection/Auscultation: normal bowel sounds Percussion/Palpation: + abdomen tender (RUQ on deep palpation), abdomen soft and + hepatomegaly; no guarding, abdomen not rigid and no splenomegaly Musculoskeletal: no cyanosis or clubbing, extremities motor strength 5/5 Skin: no rashes, warm and dry Neurologic: moves all extremities and awake; not confused Psychiatric: A+Ox3, euthymic affect Results & Data Results & Data ([facility]) Vital Signs (Past 12 Hours) Vital Signs Temp Pulse Resp BP Pulse Ox 10/26/20 16:30 89 31 H 96 10/26/20 16:20 91 H 29 H 96 10/26/20 16:10 90 34 H 96 10/26/20 16:02 94 H 28 H 10/26/20 15:50 90 29 H 97 10/26/20 15:40 90 30 H 96 10/26/20 15:30 90 29 H 96 10/26/20 15:20 92 H 36 H 10/26/20 15:10 91 H 35 H 10/26/20 15:00 90 34 H 117/60 96 10/26/20 14:59 90 28 H 95 10/26/20 14:01 92 H 22 114/58 L 10/26/20 14:00 87 36 H 10/26/20 13:50 89 33 H 10/26/20 13:40 91 H 28 H 10/26/20 13:30 91 H 26 H 10/26/20 13:20 91 H 27 H 10/26/20 13:10 90 28 H 97 10/26/20 13:00 89 28 H 125/64 97 10/26/20 12:50 90 24 98 10/26/20 12:40 88 30 H 98 10/26/20 12:32 36.5 C 89 34 H 114/64 92 10/26/20 12:30 88 29 H 114/64 99 10/26/20 12:27 88 27 H 98 10/26/20 12:20 86 29 H 116/60 99 Diagnostic Findings XR chest 1V portable IMPRESSION: Linear bibasilar opacities suggest atelectasis. Pneumonitis considered less likely. CT SCAN OF THE CHEST WITHOUT IV CONTRAST IMPRESSION: 1. There is no airspace consolidation typical for pneumonia. 2. Cardiomegaly and trace right pleural effusion. 3. Significant scarring/atelectasis is present at both lung bases. 4. There is an approximately 6 x 4 cm heterogeneous left axillary mass with s urrounding infiltration. Given the reported history of lymphoma this likely represents treated disease. Correlation with clinical findings and any prior imaging studies will be required. 5. A small and similar appearing lymph node in the anterior mediastinum measures up to 1.3 cm. 6. There is infiltration in the upper abdomen around the distal pancreas and in the right cardiophrenic region. This may resent treated lymphoma. Correlation with clinical findings, any prior imaging studies, and serum lipase levels is recommended. 7. Suspect fullness of the right upper pole renal collecting system. This is not well evaluated. If further assessment is desired a renal ultrasound could be considered. 8. Splenomegaly. 9. Additional findings as above. BILATERAL LOWER EXTREMITY VENOUS DOPPLER IMPRESSION: No DVT within the right or left lower extremity. Medications Administered ER medications given: NSS @125 mL/h ECG Indication: SOB/dyspnea Rate (beats per minute): 88 Rhythm: normal sinus Findings: + other (Poor R wave progression) and + LAFB Comparison ECG Date: no prior available Code Status & VTE Plan Code Status Full VTE Prophylaxis Plan VTE Prophylaxis will be ordered: Yes PG Care Time/CCT Total # of Minutes Spent Total Time Spent with Patient: Total time spent is greater than 50% in coordination of care (as documented) at patient's floor/unit and/or counseling patient: Coding Level of Care Code 32905 Initial Inpt Care Lvl 3 Diagnoses Acute myeloid leukemia C92.00 Lymphadenopathy R59.1 Acute kidney injury N17.9 Anemia D64.9 Hypothyroidism E03.9 Diabetes type 1, controlled E10.9 Thrombocytopenia D69.6 Elevated lactic acid level R79.89 Elevated troponin R77.8 Aortic stenosis I35.0 HTN (hypertension) I10 Coronary artery disease I25.10 DVT prophylaxis Z29.9
[2020-10-26 18:16] LABS: Appearance Urine Clear (Clear); Bacteria Urine Automated Negative (Negative); Bilirubin Urine Negative (Negative); Blood Urine 1+ (Negative); Color Urine Yellow; Glucose Urine UA Negative (Negative); Ketones Urine Negative (Negative); Leukocyte Esterase Urine 2+ (Negative); Nitrite Urine Negative (Negative); Protein Urine 1+ (Negative); RBC Urine Automated 0-4 /hpf (0-4); Specific Gravity Urine 1.019 (1.000-1.030); Urobilinogen Urine Negative (Negative)
[2020-10-26] MEDS ORDERED: GLUCOSE 40% GEL 15 GM TUBE PO PRN (18:19)
[2020-10-26] MEDS ORDERED: GLUCOSE 10 TABS/TUBE PO PRN (18:19)
[2020-10-26] MEDS ORDERED: GLUCAGON FOR INJ 1 MG VIAL SQ PRN (18:19)
[2020-10-26] MEDS ORDERED: ACETAMINOPHEN 325 MG TAB PO PRN (18:19)
[2020-10-26] MEDS ORDERED: PHARMACY GLYCEMIC MGMT CONSULT PRN (18:27)
[2020-10-26] MEDS ORDERED: CEFEPIME CONSULT ACTIVE PRN (18:52)
[2020-10-26] MEDS: DEXTROSE 50% 50 ML SYRINGE IV PRN (19:37)
--- NOTE | 2020-10-26 20:55 | Ultrasound Report ---
US abdomen complete CLINICAL HISTORY: 80 years-old Male with RUQ pain, SHERON assess for hydronephrosis/cholecysti. Acute r ight upper quadrant abdominal pain TECHNIQUE: Multiple real time sonographic images of the abdomen were obtained assessing drummond-scale a ppearance. COMPARISON: Chest CT 10/26/2019 FINDINGS: There is limited secondary to patient condition. PANCREAS: The pancreas is partially obscured by bowel gas. The visualized portions of the pancreas appear unremarkable. LIVER: There are numerous ill-defined hypoechoic lesions throughout the liver measuring up to approxi mately 3 cm. No intrahepatic biliary ductal dilation. GALLBLADDER: The gallbladder wall is thickened measuring up to 7 mm. Biliary sludge is noted without shadowing cholelithiasis. Trace pericholecystic edema/fluid. Negative sonographic Rich's sign. Common bile duct measures 0.5 cm. RIGHT KIDNEY: The right kidney measures 10.8 cm. Mild right-sided hydronephrosis. There is a cyst o f the superior pole right kidney measuring 2.0 x 2.1 x 1.8 cm. LEFT KIDNEY: The left kidney measures 10.8 cm. The parenchymal echotexture and cortical thickness a re normal. No nephrolithiasis or hydronephrosis. SPLEEN: The spleen measures 14.5 cm and is normal in echotexture. No focal lesions are identified. VASCULATURE: Mixed plaque is noted throughout the abdominal aorta. No definite aneurysm. Unremarkabl e IVC. IMPRESSION: 1. Numerous ill-defined hypoechoic hepatic lesions are suspicious for metastatic disease versus lymph omatous involvement. 2. Mild right-sided hydronephrosis. 3. Moderate to marked gallbladder wall thickening measures up to 7 mm. Additionally, there is biliary sludge with trace pericholecystic edema/fluid. No shadowing cholelithiasis identified. Findings may be secondary to fluid overload status or underlying hepatic disease versus acalculus cholecystitis. ACT 112: Negative or not required by law. The above report was generated using voice recognition software. It may contain grammatical, syntax o r spelling errors. Electronically signed by: Ed Kenney M.D. 10/26/2020 8:54 PM
[2020-10-26] MEDS: CARBOHYDRATES FOR HYPOGLYCEMIA PO PRN ×3 (21:08→23:51)
[2020-10-26 21:40] LABS: Troponin I 0.129 ng/ml (0-0.045)
[2020-10-26] MEDS: TAMSULOSIN HCL 0.4 MG CAP PO SCH (21:58)
[2020-10-26] MEDS: FAMOTIDINE 20 MG TAB PO SCH (21:58)
[2020-10-27] MEDS ORDERED: PHARMACY GLYCEMIC MGMT CONSULT STA (00:16)
[2020-10-27] MEDS: DEXTROSE 50% 50 ML SYRINGE IV PRN ×2 (00:19→23:54)
[2020-10-27] MEDS: D5W AND NSS 1,000 ML IV SCH ×2 (00:36→10:22)
[2020-10-27] MEDS ORDERED: LEVOTHYROXINE SODIUM 50 MCG TABLET PO SCH (06:30)
[2020-10-27 07:04] LABS: Albumin Level 2.7 gm/dl (3.4-5.0); BUN Creatinine Ratio 22.7 (10-20); Calcium 9.4 mg/dl (8.5-10.1); Creatinine Clr Calc Pharmacy 19.9 ml/min; Est GFR (African American) 26.8; Est GFR (Non-African American) 23.2; Magnesium 2.1 mg/dl (1.8-2.4); Potassium 4.8 mmol/L (3.5-5.1)
[2020-10-27 07:10] LABS: Albumin Globulin Ratio 0.8 (0.9-2); Bilirubin,Total 0.6 mg/dl (0.2-1); Globulin 3.3 gm/dl (2.5-4.0); Troponin I 0.146 ng/ml (0-0.045)
[2020-10-27] MEDS ORDERED: INSULIN ASPART 100 UNITS/ML 3 ML PEN SC SCH (07:30)
[2020-10-27 07:47] LABS: Hematocrit (blood only) 28.8 % (42-52); Hemoglobin 9.8 g/dL (14.0-18.0); Mean Corpuscular Hemoglobin 30.7 pg (25-34); Mean Corpuscular Volume 90.3 fL (80-100); Mean Platelet Volume 10.9 fL (7.4-10.4); Nucleated RBC # (auto) 0.53 K/uL (0-0); Nucleated RBC % (auto) 1.3 %; Platelet Count 63 K/uL (130-400); RDW Coefficient of Variation 14.8 % (11.5-14.5); RDW Standard Deviation 48.8 fL (36.4-46.3); Red Blood Count 3.19 M/uL (4.7-6.1); White Blood Count 40.77 K/uL (4.8-10.8)
[2020-10-27 07:52] LABS: Estimated Average Glucose 169 mg/dl; Hemoglobin A1C 7.5 % (4.5-5.6)
[2020-10-27] MEDS: FAMOTIDINE 20 MG TAB PO SCH ×2 (08:46→21:00)
[2020-10-27] MEDS: HEPARIN SOD 5,000 UNIT/0.5 ML VIAL SQ SCH ×2 (08:46→21:00)
[2020-10-27 08:47] LABS: ALC (manual) 8.56 K/uL (1.2-3.4); ANC (manual) 18.75 K/uL (1.4-6.5); Lymphocytes # (manual) 8.56 K/uL (1.2-3.4); Metamyelocytes # (manual) 1.63 K/uL (0-0); Monocytes # (manual) 3.67 K/uL (0.11-0.59); Myelocytes # (manual) 4.48 K/uL (0-0); Neutrophils # (manual) 18.75 K/uL (1.4-6.5); Other Cells # (manual) 3.67 K/uL (0-0); RBC Morphology Unremarkable
[2020-10-27] MEDS ORDERED: predniSONE 10 MG TABLET PO SCH (09:00)
[2020-10-27] MEDS ORDERED: INFLUENZA VACCINE HIGH DOSE 65+ 0.7 ML SYR IM ONE (09:00)
[2020-10-27] MEDS ORDERED: INFLUENZA ADMINISTRATION CHARGE ONE (09:00)
[2020-10-27] MEDS ORDERED: ASPIRIN 81 MG ECTAB PO SCH (09:00)
[2020-10-27] MEDS ORDERED: FOLIC ACID 1 MG TAB PO SCH (09:00)
[2020-10-27] MEDS: RESTASIS: ORDER AWAITING ACTION SCH ×2 (10:13→17:20)
[2020-10-27] MEDS ORDERED: COUGH DROP (SUGAR FREE) LOZ 24 LOZ/1 BOX BUCCAL STA (15:37)
[2020-10-27 17:22] LABS: INR 1.2 (0.9-1.1); Prothrombin Time 11.8 Seconds (9.0-12.0)
[2020-10-27 17:29] LABS: Albumin Level 2.6 gm/dl (3.4-5.0); BUN Creatinine Ratio 22.3 (10-20); Calcium 9.7 mg/dl (8.5-10.1); Creatinine Clr Calc Pharmacy 21.5 ml/min; Est GFR (African American) 29.5; Est GFR (Non-African American) 25.5; Magnesium 2.2 mg/dl (1.8-2.4)
[2020-10-27 17:37] LABS: Albumin Globulin Ratio 0.7 (0.9-2); Bilirubin,Total 0.6 mg/dl (0.2-1); Globulin 3.8 gm/dl (2.5-4.0); Phosphorus 3.6 mg/dl (2.5-4.9); Total Protein 6.4 gm/dl (6.4-8.2); Uric Acid 18.3 mg/dl (2.6-7.2)
[2020-10-27 17:48] LABS: Fibrinogen 500 mg/dl (184-400)
--- NOTE | 2020-10-27 18:06 | Hospitalist Progress Note ---
Date of Service October 27, 2020 Assessment & Plan (1) Acute myeloid leukemia: Suspected AML vs lymphoma. Accepted for transfer to [facility] under Dr. Whitaker but due to current weather conditions was admitted overnight. Now no longer has a bed. - Given concern for TLS with uric acid of 18, will give rasburicase 7.5 mg IV x 1 dose. - Recheck uric acid and all lytes in the AM. - Generous IV fluids; can use Lasix simultaneously if needed, but WOULD NOT stop fluids. - Discussed with Dr. Mckinnon at [place] on 10/27 who was in agreement. (2) Tumor lysis syndrome: See above (3) Lymphadenopathy: AML vs. lymphoma as above. (4) Acute kidney injury: Likely multifactorial with prerenal, ibuprofen use, and TLS. - Continue generous IV fluids - Hold spironolactone/hydrochlorothiazide and losartan. - Repeat BMP in a.m. (5) Anemia: Known hemolytic anemia on prednisone - continue current dose at 10 mg p.o. daily. No present indication for stress-dosing. - Will monitor hgb. (6) Hypothyroidism: TSH was 2.45 on 10/26/2020. - Continue levothyroxine home dosing alternating doses every other day; 50/75 mcg p.o. every other day. (7) Diabetes type 1, controlled: HbA1c was 5.1% in 04/2020. Patient wishes to use his own insulin pump. - Discussed current hypoglycemia and will have no basal dose between 10 PM and 2 AM with markedly reduced basal dose after this. - Follow closely. (8) Thrombocytopenia: Suspect secondary to AML/lymphoma above. - No signs of bleeding; monitor. - Will get peripheral smear tomorrow AM to ensure no active hemolysis. (9) Elevated lactic acid level: Suspect elevated in the setting of diabetes and acute leukemia rather than sepsis. - Significant anion gap however noted acidosis on ABG therefore well com pensated. (10) Elevated troponin: Previous cardiac catheterization (June 2020) with moderate non- obstructive mid-RCA stenosis (FFR 0.91). - Troponins stable at ~0.15 x 3. No chest pain. -> Suspect demand ischemia in the setting of cancer. - Continue aspirin 81 mg p.o. daily - Continue rosuvastatin 10 mg p.o. MWF (11) Aortic stenosis: S/p TAVR 08/2020. - No sign of heart failure on exam or imaging. - Close monitoring. (12) HTN (hypertension): BP presently 120/60. - Hold losartan, hydrochlorothiazide, spironolactone as above. (13) DVT prophylaxis: Heparin 5000 units SQ twice daily (hold if platelets less than 50) Admission and Anticipated Discharge Date Admission Date: October 26, 2020 Subjective Feeling slightly short of breath, but stable since admission. Reports no fevers/chills, chest pain, abdominal pain, nausea, or vomiting. Physical Exam Constitutional: WD/WN, vitals as above Eyes: EOM intact bilaterally; no conjunctival abnormality ENMT: external ear and nose normal, oropharynx normal Neck: trachea midline, no thyromegaly normal visual inspection Respiratory: normal respiratory effort, lungs clear to auscultation + tachypneic; no respiratory distress Auscultation: no wheezes Cardiovascular: Rate/Rhythm: regular rhythm and + tachycardic Heart Sounds: normal S1 and normal S2 Gastrointestinal (Abdomen): Inspection/Auscultation: abdomen normal to inspection; abdomen not distended Musculoskeletal: no cyanosis or clubbing, extremities motor strength 5/5 Skin: no rashes, warm and dry Neurologic: moves all extremities and awake Psychiatric: Orientation: alert, oriented to person and cooperative Results & Data Results & Data ([facility]) Vital Signs (Past 12 Hours) Vital Signs Temp Pulse Pulse Resp BP Pulse Ox 10/27/20 15:52 97 H 10/27/20 15:41 36.6 C 98 H 16 118/58 L 92 10/27/20 12:00 37.9 C H 101 H 18 144/69 H 92 10/27/20 08:12 36.5 C 110 H 18 128/65 93 PG Care Time/CCT Total # of Minutes Spent Total Time Spent with Patient: Total time spent is greater than 50% in coordination of care (as documented) at patient's floor/unit and/or counseling patient: Coding Level of Care Code 56063 Subseq Hosp Care Lvl 3 Diagnoses Acute myeloid leukemia C92.00 Tumor lysis syndrome E88.3 Lymphadenopathy R59.1 Acute kidney injury N17.9 Anemia D64.9 Hypothyroidism E03.9 Diabetes type 1, controlled E10.9 Thrombocytopenia D69.6 Elevated lactic acid level R79.89 Elevated troponin R77.8 Aortic stenosis I35.0 HTN (hypertension) I10 DVT prophylaxis Z29.9
[2020-10-27] MEDS ORDERED: PHARMACY GLYCEMIC MGMT CONSULT PRN (18:38)
[2020-10-27] MEDS ORDERED: INSULIN ASPART 100 UNITS/ML VIAL SC PRN (18:45)
[2020-10-27] MEDS ORDERED: CEFEPIME 2,000 MG in SYRINGE 0 ML IV SCH (19:00)
[2020-10-27] MEDS ORDERED: RASBURICASE 7.5 MG in SODIUM CHLORIDE 0.9% 50 ML IV ONE (19:00)
[2020-10-27] MEDS: NORMOSOL-R 1,000 ML IV SCH ×2 (19:15→23:48)
[2020-10-27] MEDS: TAMSULOSIN HCL 0.4 MG CAP PO SCH (21:00)
[2020-10-27] MEDS ORDERED: NovoLOG INSULIN PUMP SCH (21:00)
[2020-10-28] MEDS ORDERED: NovoLOG INSULIN PUMP SCH
[2020-10-28] MEDS: RESTASIS: ORDER AWAITING ACTION SCH (00:01)
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
[2020-10-28] MEDS: NORMOSOL-R 1,000 ML IV SCH (04:35)
[2020-10-28] MEDS ORDERED: LEVOTHYROXINE SODIUM 75 MCG TABLET PO SCH (06:30)
[2020-10-28] MEDS ORDERED: ROSUVASTATIN CALCIUM 10 MG TAB PO SCH (09:00)
== END 2020-10-28 06:47 | disposition short-term general hospital (02) ==
LOC: ED 12:11 → INTOOBSV 16:52 → 2S 16:52 → SUATTDRO 16:52